=== PATIENT | male | born 1995 | race Hispanic/Latino ===

== ENCOUNTER 2018-03-19 19:22 | Emergency (ER) | payer BC, MEDICAID ==
[2018-03-19 19:48] LABS: HEMATOCRIT 44.6 % (42-54); MEAN CORPUSCULAR HGB CONC 32.8 g/dL (32.0-36.0); MEAN CORPUSCULAR VOLUME 88.4 fL (80-100); NEUTROPHILS % (AUTO) 52.2 % (40.0-77.0); PLATELET COUNT (AUTO) 276 K/uL (130-400); RED BLOOD CELL COUNT(AUTO) 5.04 MIL/uL (4.50-6.20); RED CELL DISTRIBUTION WIDTH 13.5 % (11.0-15.5); WHITE BLOOD COUNT (AUTO) 9.2 K/uL (4.8-10.8)
[2018-03-19 19:49] LABS: BASOPHILS % (AUTO) 0.5 % (0.0-5.0); EOSINOPHILS % (AUTO) 0.7 % (0.0-8.0); LYMPHOCYTES % (AUTO) 38.4 % (21.0-51.0); MONOCYTES % (AUTO) 8.2 % (3.0-13.0)
[2018-03-19 20:00] LABS: CREATININE 1.1 mg/dL (0.5-1.5)
[2018-03-19 20:05] LABS: BILIRUBIN,TOTAL 0.4 mg/dL (0.2-1.0); TOTAL PROTEIN, SERUM 7.6 g/dL (6.0-8.3)
[2018-03-19] MEDS ORDERED: KETOROLAC TROMETHAMINE 15MG/ML ONE (20:44)
[2018-03-19] MEDS ORDERED: SODIUM CHLORIDE 0.9% 1000ML 1,000 ML IV ONE (20:44)
[2018-03-19] MEDS ORDERED: IOHEXOL-350 75 ML VIAL IV ONE ×2 (20:45)
[2018-03-19 22:10] LABS: APPEARANCE,URINE Clear (CLEAR); BILIRUBIN,URINE Negative (NEGATIVE); COLOR,URINE Yellow (YELLOW); GLUCOSE, URINE (UA) Negative (NEGATIVE); KETONES,URINE Negative (NEGATIVE); LEUKOCYTE ESTERASE ,URINE Negative (NEGATIVE); NITRATE,URINE Negative (NEGATIVE); OCCULT BLOOD,URINE Nonhemolyzed Trace (NEGATIVE); PH,URINE 8.5 (5.0-8.0); PROTEIN,URINE Negative (NEGATIVE); UROBILINOGEN,URINE 0.2 mg/dL (0.2-1.0)
[2018-03-19 22:18] LABS: AMPHET/METH SCREEN,URINE NEGATIVE (NEGATIVE); BARBITURATE SCREEN, URINE NEGATIVE (NEGATIVE); BENZODIAZEPINES SCREEN,URINE NEGATIVE (NEGATIVE); CANNABINOID SCREEN,URINE POSITIVE (NEGATIVE); COCAINE SCREEN,URINE NEGATIVE (NEGATIVE); OPIATE SCREEN,URINE NEGATIVE (NEGATIVE); PHENCYCLIDINE SCREEN,URINE NEGATIVE (NEGATIVE)
[2018-03-19 22:27] LABS: BACTERIA,URINE None Seen /HPF (None Seen); MUCUS,URINE Rare LPF (None Seen); SQUAMOUS EPITHELIAL CELL,UR None Seen /HPF (0-2); WBC,URINE None Seen /HPF (0-1)
== END 2018-03-19 22:41 | disposition home or self-care (01) ==
LOC: EDH 19:22
DX: N20.1 Calculus of ureter (principal); F84.0 Autistic disorder; F12.10 Cannabis abuse, uncomplicated; Z72.0 Tobacco use
CPT/HCPCS: 36415; 74177; 76870; 80053; 80305; 81001; 83690; 85025; 96361; 96374; 99285; J1885; J7030; Q9967

== ENCOUNTER 2020-03-10 15:47 | Emergency (ER) | payer BC, MEDICAID ==
[2020-03-10] MEDS ORDERED: SODIUM CHLORIDE 0.9% 1000ML 1,000 ML IV ONE (15:48)
[2020-03-10] MEDS ORDERED: ACETAMINOPHEN EXTRA STRENGTH 500 MG TABLET ONE (17:06)
[2020-03-10 17:15] LABS: BASOPHILS % (AUTO) 0.2 % (0.0-5.0); EOSINOPHILS % (AUTO) 0.3 % (0.0-8.0); LYMPHOCYTES % (AUTO) 7.7 % (21.0-51.0); MEAN CORPUSCULAR HEMOGLOBIN 29.1 pg (27.0-33.0); MEAN CORPUSCULAR HGB CONC 34.1 g/dL (32.0-36.0); MEAN CORPUSCULAR VOLUME 85.3 fL (79-99); MONOCYTES % (AUTO) 3.5 % (3.0-13.0); NEUTROPHILS % (AUTO) 87.2 % (40.0-77.0); PLATELET COUNT (AUTO) 630 K/uL (130-400); RED BLOOD CELL COUNT(AUTO) 4.57 MIL/uL (4.50-6.20); RED CELL DISTRIBUTION WIDTH 12.5 % (11.0-15.5); WHITE BLOOD COUNT (AUTO) 10.3 K/uL (4.8-10.8)
[2020-03-10 17:54] LABS: POTASSIUM 3.4 mmol/L (3.5-5.1)
[2020-03-10 17:58] LABS: ALBUMIN 2.5 g/dL (3.5-5.0); BILIRUBIN,TOTAL 0.8 mg/dL (0.2-1.0); TOTAL PROTEIN, SERUM 8.4 g/dL (6.0-8.3)
== END 2020-03-10 18:30 | disposition home or self-care (01) ==
LOC: EDH 15:47
DX: R50.9 Fever, unspecified (principal); R05 Cough; R11.2 Nausea with vomiting, unspecified; Z20.828 Contact with and (suspected) exposure to other viral communicable diseases; F84.0 Autistic disorder; Z72.0 Tobacco use
CPT/HCPCS: 36415; 71045; 80053; 85025; 85378; 87040 ×2; 87426; 99284; J7030; U0003